=== PATIENT | female | born 2000 | race Caucasian/White ===

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

== ENCOUNTER 2022-02-19 00:45 | Emergency (ER) | payer OTHER ==
[~2022-02-19] VITALS: Ht 170.1 cm; Wt 65.0 kg
[~2022-02-19 00:45] MED LIST: PRD20T PO
[2022-02-19] MEDS ORDERED: NORG1TAB14 PO (01:09)
[2022-02-19] MEDS ORDERED: SERT-412 PO (01:09)
[2022-02-19] MEDS ORDERED: MECL-149 PO (01:10)
[2022-02-19] MEDS ORDERED: ONDANSETRON 4 MG/2 ML (SDV) Z0FRAN IVP ONE (01:15)
[2022-02-19] MEDS ORDERED: fentaNYL INJ 100 MCG/2 ML AMP IVP ONE (01:15)
[2022-02-19 01:32] LABS: BASOPHILS % (AUTO) 0 % (0-10); EOSINOPHILS # (AUTO) 0.1 10^3/uL (0.0-0.3); EOSINOPHILS % (AUTO) 1 % (0-10); HEMATOCRIT 34 % (35-52); HEMOGLOBIN 11.6 g/dL (11.5-16.0); LYMPHOCYTES # (AUTO) 2.7 10^3/uL (1.0-4.0); LYMPHOCYTES % (AUTO) 33 % (12-44); MEAN CORPUSCULAR HEMOGLOBIN 28 pg (25-34); MEAN CORPUSCULAR HGB CONC 35 g/dL (32-36); MEAN CORPUSCULAR VOLUME 81 fL (80-99); MEAN PLATELET VOLUME 11.6 fL (9.0-12.2); MONOCYTES # (AUTO) 0.7 10^3/uL (0.0-1.0); MONOCYTES % (AUTO) 8 % (0-12); NEUTROPHILS # (AUTO) 4.9 10^3/uL (1.8-7.8); NEUTROPHILS % (AUTO) 58 % (42-75); PLATELET COUNT 205 10^3/uL (130-400); WHITE BLOOD COUNT 8.4 10^3/uL (4.3-11.0)
[2022-02-19 01:51] LABS: BILIRUBIN,URINE NEGATIVE (NEGATIVE); CLARITY,URINE CLEAR; COLOR,URINE YELLOW; GLUCOSE, URINE (UA) NEGATIVE (NEGATIVE); KETONES,URINE 1+ (NEGATIVE); LEUKOCYTE ESTERASE ,URINE NEGATIVE (NEGATIVE); NITRITE,URINE NEGATIVE (NEGATIVE); PROTEIN,URINE NEGATIVE (NEGATIVE)
[2022-02-19 02:00] LABS: BACTERIA,URINE FEW /HPF; WBC,URINE 0-2 /HPF
[2022-02-19 02:05] LABS: ALANINE AMINOTRANSFERASE 9 U/L (0-55); ALKALINE PHOSPHATASE 38 U/L (40-136); BILIRUBIN,TOTAL 0.3 MG/DL (0.1-1.0); BUN/CREATININE RATIO 26; CARBON DIOXIDE 18 MMOL/L (21-32); CHLORIDE 104 MMOL/L (98-107); CREATININE SERUM 0.68 MG/DL (0.60-1.30); GFR ESTIMATED 129; GLUCOSE 97 MG/DL (70-105); LIPASE 21 U/L (8-78); POTASSIUM 3.3 MMOL/L (3.6-5.0); SODIUM 137 MMOL/L (135-145); TOTAL PROTEIN 6.8 GM/DL (6.4-8.2)
[2022-02-19] MEDS ORDERED: NS 100 ML (IVPB) BAG IV ONE (02:45)
[2022-02-19] MEDS ORDERED: HOLD METFORMIN - RECEIVED CONTRAST 20 ML VIAL IV SCH (02:45)
[2022-02-19] MEDS ORDERED: CATHETER FLUSH 10 ML SYR IV PRN (02:45)
[2022-02-19] MEDS ORDERED: IOHEXOL 350 MG/ML 100 ML (OMNIPAQUE 350) VIAL IV ONE (02:45)
[2022-02-19] MEDS ORDERED: KETOROLAC 30 MG/ML VIAL IVP ONE (04:00)
--- NOTE | 2022-02-19 04:05 | ED Abdominal Pain ---
General Chief Complaint: Abdominal/GI Problems Stated Complaint: STOMACH AND CHEST PAIN Nursing Triage Note: Arrival to ER per POV accompanied by mother and boyfriend. Patient ambulated to ED 6 reporting abd pain for 1 1/2 hr duration with nausea. Pt reports some pain in LUQ and bilateral flanks. Denies urinary or gynecological symptoms. LMP 02/09/22. Pt has seen providers on 02/13 for anxiety/depression receiving prescription and again on 02/17 and received medication change. Pt seen in [facility] for headache and dizziness and resolving with Ibuprofen and Meclizine. Patient has missed work for 3 days. Source of Information: Patient, Family Exam Limitations: No Limitations History of Present Illness Date Seen by Provider: February 19, 2022 Time Seen by Provider: 00:59 Initial Comments This 21-year-old young lady presents to the emergency room with complaints of rather intense lower abdominal pain. She has had a more vague discomfort for a few days. The pain became intense about 1-1/2 hours ago. She denies any diarrhea, constipation, or urinary changes. She has not noticed any vaginal symptoms such as vaginal pain, pain with intercourse, or vaginal discharge. She has been afebrile. She is sexually active with 1 partner over the past 9 months. She has not had any other partners and reports that she always uses barrier protection. She was seen at the walk-in clinic yesterday and prescribed meclizine for nausea. She also reports having a recent new prescription for fluoxetine prescribed on February 13. That was changed to sertraline on February 17. Vital signs are unremarkable. Allergies and Home Medications Allergies Coded Allergies: ciprofloxacin (Verified Allergy, Unknown, chest pain , 01/12/21) Patient Home Medication List Home Medication List Reviewed: Yes Hydrocodone/Acetaminophen (Hydrocodone-Acetamin 5-325 mg) 5 Mg-325 Mg Tablet, 1 TAB PO Q4H PRN for PAIN-MODERATE (5-7) Prescribed by: MARIAJOSE FAUST on 02/19/22 0608 Meclizine HCl (Meclizine HCl) 25 Mg Tablet, 25 MG PO, (Reported) Entered as Reported by: RANDY WOLF on 02/19/22 0110 Last Action: New Order Norgestimate-Ethinyl Estradiol (Sprintec 28 Day Tablet) 0.25 Mg-35 Mcg Tablet, 1 TAB PO DAILY, (Reported) Entered as Reported by: RANDY WOLF on 02/19/22108 Last Action: New Order Ondansetron (Ondansetron Odt) 4 Mg Tab.rapdis, 4 MG SL Q4H PRN for NAUSEA/VOMITING Prescribed by: MARIAJOSE FAUST on 02/19/22 06 Sertraline HCl (Sertraline HCl) 25 Mg Tablet, 25 MG PO DAILY, (Reported) Entered as Reported by: RANDY WOLF on 02/19/22108 Last Action: New Order Discontinued Medications Prednisone (Prednisone) 20 Mg Tab, 40 MG PO DAILY Discontinued Reason: Referral/FU Appt-Addtl Prescribed by: ELLA DIEZ on 01/12/211856 Last Action: Discontinued Review of Systems Review of Systems Constitutional: no symptoms reported EENTM: No Symptoms Reported Respiratory: No Symptoms Reported Cardiovascular: No Symptoms Reported Gastrointestinal: See HPI Genitourinary: See HPI Musculoskeletal: no symptoms reported Skin: no symptoms reported Psychiatric/Neurological: No Symptoms Reported Endocrine: No Symptoms Reported Hematologic/Lymphatic: No Symptoms Reported Past Vmboytc-Kdollc-Jnkeqc Hx Patient Social History Tobacco Use?: No Smokeless Tobacco Frequency: Never a User Use of E-Cig and/or Vaping [place]: Never a User Substance use?: No Alcohol Use?: No Pt feels they are or have been: No Immunizations Up To Date Influenza Vaccine Up-to-Date: No; Not Current First/Initial COVID19 Vaccinat: unvaccinated Seasonal Allergies Seasonal Allergies: No Past Medical History Surgery/Hospitalization HX: Depreession/Anxiety Surgeries: No Respiratory: No Cardiac: No Neurological: No : No Last Menstrual Period: February 09, 2022 Genitourinary: No Gastrointestinal: No Musculoskeletal: No Endocrine: No HEENT: No Cancer: No Psychosocial: Yes Anxiety Integumentary: No Blood Disorders: No Physical Exam Vital Signs Vital Signs - First Documented 02/19/22 00:50 Temp 36.9 Pulse 74 Resp 18 B/P (MAP) 133/79 (97) Pulse Ox 100 O2 Delivery Room Air Capillary Refill : Less Than 3 Seconds Height/Weight/BMI Height: '" Weight: lbs. oz. kg; 22.00 BMI Method: General Appearance: WD/WN, mild distress, thin HEENT: PERRL/EOMI, normal ENT inspection Neck: normal inspection Respiratory: lungs clear, normal breath sounds, no respiratory distress Cardiovascular: regular rate, rhythm, no edema, no murmur Gastrointestinal: normal bowel sounds, soft; No distended; tenderness (Moderate tenderness across the lower abdomen. 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, no motor/sensory deficits, alert, normal mood/affect, oriented x 3 Skin: normal color, warm/dry Progress/Results/Core Measures Results/Orders Lab Results Laboratory Tests Test 02/19/22 01:19 02/19/22 01:40 02/19/22 04:30 Range/Units White Blood Count 8.4 4.3-11.0 10^3/uL Red Blood Count 4.17 3.80-5.11 10^6/uL Hemoglobin 11.6 11.5-16.0 g/dL Hematocrit 34 L 35-52 % Mean Corpuscular Volume 81 80-99 fL Mean Corpuscular Hemoglobin 28 25-34 pg Mean Corpuscular Hemoglobin Concent 35 32-36 g/dL Red Cell Distribution Width 14.2 10.0-14.5 % Platelet Count 205 130-400 10^3/uL Mean Platelet Volume 11.6 9.0-12.2 fL Immature Granulocyte % (Auto) 0 % Neutrophils (%) (Auto) 58 42-75 % Lymphocytes (%) (Auto) 33 12-44 % Monocytes (%) (Auto) 8 0-12 % Eosinophils (%) (Auto) 1 0-10 % Basophils (%) (Auto) 0 0-10 % Neutrophils # (Auto) 4.9 1.8-7.8 10^3/uL Lymphocytes # (Auto) 2.7 1.0-4.0 10^3/uL Monocytes # (Auto) 0.7 0.0-1.0 10^3/uL Eosinophils # (Auto) 0.1 0.0-0.3 10^3/uL Basophils # (Auto) 0.0 0.0-0.1 10^3/uL Immature Granulocyte # (Auto) 0.0 0.0-0.1 10^3/uL Sodium Level 137 135-145 MMOL/L Potassium Level 3.3 L 3.6-5.0 MMOL/L Chloride Level 104 98-107 MMOL/L Carbon Dioxide Level 18 L 21-32 MMOL/L Anion Gap 15 H 5-14 MMOL/L Blood Urea Nitrogen 18 7-18 MG/DL Creatinine 0.68 0.60-1.30 MG/DL Estimat Glomerular Filtration Rate 129 BUN/Creatinine Ratio 26 Glucose Level 97 70-105 MG/DL Calcium Level 9.0 8.5-10.1 MG/DL Corrected Calcium 9.0 8.5-10.1 MG/DL Total Bilirubin 0.3 0.1-1.0 MG/DL Aspartate Amino Transf (AST/SGOT) 12 5-34 U/L Alanine Aminotransferase (ALT/SGPT) 9 0-55 U/L Alkaline Phosphatase 38 L 40-136 U/L C-Reactive Protein < 0.30 <0.50 MG/DL Total Protein 6.8 6.4-8.2 GM/DL Albumin 4.0 3.2-4.5 GM/DL Lipase 21 8-78 U/L Serum Test, Qualitative NEGATIVE NEGATIVE Urine Color YELLOW Urine Clarity CLEAR Urine pH 6.0 5-9 Urine Specific [place] 1.025 H 1.016-1.022 Urine Protein NEGATIVE NEGATIVE Urine Glucose (UA) NEGATIVE NEGATIVE Urine Ketones 1+ H NEGATIVE Urine Nitrite NEGATIVE NEGATIVE Urine Bilirubin NEGATIVE NEGATIVE Urine Urobilinogen 0.2 < = 1.0 MG/DL Urine Leukocyte Esterase NEGATIVE NEGATIVE Urine RBC (Auto) NEGATIVE NEGATIVE Urine RBC NONE /HPF Urine WBC 0-2 /HPF Urine Squamous Epithelial Cells 2-5 /HPF Urine Crystals NONE /LPF Urine Bacteria FEW H /HPF Urine Casts NONE /LPF Urine Mucus SMALL H /LPF Urine Culture Indicated NO Micro Results Microbiology 02/19/22 Genital Culture, Resulted Pending 02/19/22 Wet Prep - Final, Resulted My Orders Orders - MARIAJOSE EDDY MD Cbc With Automated Diff (02/19/22 01:06) Comprehensive Metabolic Panel (02/19/22 01:06) Hcg,Qualitative Serum (02/19/22 01:06) Lipase (02/19/22 01:06) Ua Culture If Indicated (02/19/22 01:06) Ed Iv/Invasive Line Start (02/19/22 01:06) Fentanyl Inj (Sublimaze Injection) (02/19/22 01:15) Ondansetron Injection (Zofran Injectio (02/19/22 01:15) Crp Fs (02/19/22 01:06) Ct Abdomen/Pelvis W (02/19/22 02:24) Iohexol Injection (Omnipaque 350 Mg/Ml 1 (02/19/22 02:45) Received Contrast (Hold Metformin- Contr (02/19/22 02:45) Sodium Chloride Flush (Catheter Flush Sy (02/19/22 02:45) Ns (Ivpb) (Sodium Chloride 0.9% Ivpb Bag (02/19/22 02:45) Ketorolac Injection (Toradol Injection) (02/19/22 04:00) Wet Prep (02/19/22 05:07) Neisseria Gonorrhea Swab (02/19/22 05:07) Genital Culture (02/19/22 05:07) Chlamydia Trachomatis Swab (02/19/22 05:07) Ceftriaxone 1 Gm Pre-Mix (Rocephin 1 Gm (02/19/22 05:48) Azithromycin Tablet (Zithromax Tablet) (02/19/22 05:48) Hydrocodone/Apap 5/325 Tablet (Lortab 5 (02/19/22 06:00) Medications Given in ED Current Medications Medications Dose Ordered Sig/Jamie Route Start Time Stop Time Status Last Admin Dose Admin Acetaminophen/ Hydrocodone Bitart 1 ea ONCE ONCE PO 02/19/22 06:00 02/19/22 06:01 DC 02/19/22 06:04 1 EA Fentanyl Citrate 50 mcg ONCE ONCE IVP 02/19/22 01:15 02/19/22 01:16 DC 02/19/22 01:27 50 MCG Iohexol 100 ml ONCE ONCE IV 02/19/22 02:45 02/19/22 02:50 DC 02/19/22 02:54 100 ML Ketorolac Tromethamine 15 mg ONCE ONCE IVP 02/19/22 04:00 02/19/22 04:01 DC 02/19/22 04:04 15 MG Ondansetron HCl 8 mg ONCE ONCE IVP 02/19/22 01:15 02/19/22 01:16 DC 02/19/22 01:27 8 MG Sodium Chloride 10 ml NEEDED PRN IV 02/19/22 02:45 02/19/22 06:27 DC 02/19/22 02:54 10 ML Sodium Chloride 100 ml ONCE ONCE IV 02/19/22 02:45 02/19/22 02:50 DC 02/19/22 02:54 80 ML Vital Signs/I&O 02/19/22 02/19/22 02/19/22 02/19/22 00:50 01:27 04:04 06:04 Temp 36.9 36.9 36.9 36.9 Pulse 74 Resp 18 B/P (MAP) 133/79 (97) Pulse Ox 100 O2 Delivery Room Air 02/19/22 06:13 Temp 36.7 Pulse 69 Resp 18 B/P (MAP) 117/74 Pulse Ox 99 O2 Delivery Room Air Blood Pressure Mean: 97 Progress Progress Note #1: Time: 04:05 Progress Note Patient was treated with fentanyl and Zofran which greatly improved her symptoms. Labs and urinalysis were unremarkable. I discussed options with the patient regarding further evaluation which included CT scanning now versus ultrasound ordered later in the morning. We discussed risks and benefits of each exam. Risks of CT scan including exposure to radiation. Patient discussed the situation with her mother and she elected to proceed with CT scan. CT was obtained and stat rad report was reviewed. Impression was as follows: "Small amount of fluid in the pelvis and right ovarian cysts findings could be from a ruptured cyst. Mild stranding in the pelvis peritoneum could be from the above, please correlate to exclude pelvic inflammatory disease. Otherwise no acute findings in the abdomen or pelvis." While it is doubtful these findings are related to PID with normal labs and vital signs, I did offer pelvic exam to the patient because she is sexually active. She uses barrier protection and has had only 1 partner and has been sexually active for about 9 months. Pelvic exam will be obtained. Ultrasound to further characterize her pelvic findings will be offered at discharge. Toradol has been given for additional pain control. Progress Note #2: Time: 04:35 Progress Note Pelvic exam was performed and swabs were collected. There was a copious amount of mucousy discharge in the vagina. Cervix appeared normal without any inflammatory changes. There was no bleeding. There was minimal discomfort with bimanual palpation and cervical motion. Empiric treatment for STIs will be administered if there is any indication by preliminary swabs. Departure Impression Primary Impression: Pelvic pain Additional Impression: Ruptured ovarian cyst Disposition: 01 HOME, SELF-CARE Condition: Improved Departure-Patient Inst. Referrals: REESE VELEZ RENDERING EQUIPMENT TENDER (PCP/Family) Primary Care Physician Patient Instructions: Ovarian Cysts, Sexually Transmitted Diseases ED Add. Discharge Instructions: You may take ibuprofen up to 600 mg every 6 hours as needed for pain. Add hydrocodone or Tylenol for pain not controlled by ibuprofen. Observe abstinence until the results of your cultures are known. You may take Zofran (ondansetron) as prescribed for any nausea or vomiting. Follow-up with your primary care provider or women's health provider soon as possible. Your pain should gradually improve. If it is not improving or if you have worsening symptoms, return to the ER for further evaluation. All discharge instructions reviewed with patient and/or family. Voiced understanding. Scripts Ondansetron (Ondansetron Odt) 4 Mg Tab.rapdis 4 MG SL Q4H PRN for NAUSEA/VOMITING, #10 TAB Prov: MARIAJOSE EDDY MD 02/19/22 Hydrocodone/Acetaminophen (Hydrocodone-Acetamin 5-325 mg) 5 Mg-325 Mg Tablet 1 TAB PO Q4H PRN for PAIN-MODERATE (5-7), #10 TAB Prov: MARIAJOSE EDDY MD 02/19/22 Copy Copies To 1: [facility]/MARIAJOSE RAO MD February 19, 2022 04:05
[2022-02-19] MEDS ORDERED: AZITHROMYCIN 250 MG TAB (ZITHROMAX) PO STA (05:48)
[2022-02-19] MEDS ORDERED: cefTRIAXone 1 GM PRE-MIX 50 ML IV STA (05:48)
[2022-02-19] MEDS ORDERED: HYDROcodone/APAP 5 MG/325 MG (LORTAB) TAB PO ONE (06:00)
[2022-02-19] MEDS ORDERED: ACHD5005 PO (06:04)
[2022-02-19] MEDS ORDERED: ONDA4TAB11 SL (06:10)
[2022-02-19 06:13] VITALS: BP 117/74
--- NOTE | 2022-02-19 06:42 | Diagnostic Imaging Report ---
INDICATION: Nausea, vomiting and abdominal pain TECHNIQUE: Multiple contiguous axial images were obtained through the abdomen and pelvis after administration of intravenous contrast. Auto Exposure Controls were utilized during the CT exam to meet ALARA standards for radiation dose reduction. All CT scans use one or more of the following dose optimizing techniques: automated exposure control, MA and/or KvP adjustment based on patient size and exam type or iterative reconstruction. There is no prior study for comparison. The visualized portions of the lung bases are clear. There were no pleural fluid collections. There is no free intraperitoneal air. The liver shows no focal lesion. There is mild fatty change liver. Gallbladder and spleen and adrenals and pancreas and kidneys all appear normal. There is no retroperitoneal mass or adenopathy. There is no ascites. Visualized bowel loops show no sign of obstruction. The appendix appears normal. The right adnexa shows a 3.3 cm cyst. There is a small amount of free fluid in the pelvis which may be physiologic in a young female. There is questionable fat stranding in the pelvis, correlate for pelvic inflammatory disease. IMPRESSION: 3.3 cm right ovarian cyst. There is a small amount of free fluid in pelvis which may be due to cyst rupture. This may be physiologic in a young female. There is a small amount of fat stranding in the pelvis which is not significant. This could represent pelvic inflammatory disease, correlate clinically. The appendix appears normal. There is mild fatty infiltration of the liver. Dictated by: Dictated on workstation # [id number]
== END 2022-02-19 06:13 | disposition home or self-care (01) ==
LOC: EDUNIT# 00:45 → ER FS 00:51
DX: N83.201 Unspecified ovarian cyst, right side (principal); Z28.310 Unvaccinated for COVID-19
CPT/HCPCS: 36415; 74177; 80053; 81000; 83690; 84703; 85025; 86141; 87070; 87205; 87210; 87491; 87591; Q9967